=== PATIENT | male | born 1975 | race Caucasian/White ===

== ENCOUNTER → 2021-03-27 12:35 | Outpatient (BNVA) | payer OTHER, SELFPAY | PROVIDERS: Visit Provider Surgery | DX: L72.0 Epidermal cyst (principal) | CPT/HCPCS: 99202 ==

== ENCOUNTER 2021-04-26 10:32 | Outpatient (REF) | payer OTHER, SELFPAY ==
[2021-04-26 10:41] VITALS: BMI 29.8
[2021-04-26 10:42] VITALS: BP 153/98; PULSE 77; RESP 16; TEMP 36.5; O2SAT 97
--- NOTE | 2021-04-26 12:49 | W.PM.OPN ---
Operative Note Operative Note Date of Service: 04/26/21 Narrative: Preoperative diagnosis: Lipoma of left back Postoperative diagnosis: Lipoma of left back Procedure: Excision of lipoma left back Surgeon: Torrey Lebron MD Direct Support Professional Caregiver: No physician Anesthesia: Local Indications for procedure: 46-year-old male patient with a enlarging lesion of the left upper back Operative findings: Lipoma left back 6 cm in diameter Specimen: Lipoma Estimated blood loss: 10 mL Complications: None Procedure details: Patient was brought to the minor surgery suite placed in a prone position. The site of surgery was confirmed by the patient in the left upper back. After assuring informed consent the skin was prepped with Betadine and draped in a sterile fashion. Local anesthesia consisting lidocaine 1% with epinephrine was then infiltrated in elliptical fashion around the lesion. Elliptical incision oriented transversely was then created around the previous incision. Incision was carried out through subcutaneous tissue up to the wall the lipoma. Sharp dissection was then used to dissect the lipoma from the surrounding subcutaneous tissue. The lipoma abutted the underlying muscle fascia. The lesion was completely excised and sent to pathology for further examination. Hemostasis was assured using a suture ligature of 3-0 Polysorb suture. Dermis was then reapproximated using interrupted 3-0 Polysorb sutures. Skin was closed using a running subcuticular 4-0 Polysorb suture. Steri-Strips 2 x 2 gauze and Tegaderm were then applied. The patient tolerated the procedure well. He was discharged to home in stable condition.
== END 2021-04-26 10:33 | disposition home or self-care (01) ==
LOC: HO.MS 10:32
PROVIDERS: Visit Provider Surgery
DX: D17.1 Benign lipomatous neoplasm of skin and subcutaneous tissue of trunk (principal)
CPT/HCPCS: 11406; 12032; 88304